=== PATIENT | male | born 1975 | race Caucasian/White ===

== ENCOUNTER → 2019-10-27 12:15 | Outpatient (CLI) | payer OTHER, SELFPAY ==
--- NOTE | 2019-10-27 | DI.RAD.S_ITS ---
PROCEDURE: XR HIP W PEL IF DONE RT 2V INDICATIONS: Pain in right hip TECHNIQUE: AP pelvis with lateral view(s) of the right hip(s). COMPARISON: None. FINDINGS: Bones: No fractures or dislocations. Pelvic ring appears intact. No suspicious bony lesions. There is moderate to severe superior joint space narrowing seen of the right hip, with associated remodeling changes with subchondral sclerosis and osteophyte formation. Moderate degenerative change is seen of the contralateral left hip. Soft tissues: The visualized bowel gas pattern is normal. No suspicious soft tissue calcifications. 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 Dictated by: Brian German M.D. on 10/27/2019 at 12:49 Approved by: Brian German M.D. on 10/27/2019 at 12:49
== END ==
PROVIDERS: Referring Provider Chiropractor; Visit Provider Chiropractor
DX: M25.551 Pain in right hip (principal); M25.751 Osteophyte, right hip
CPT/HCPCS: 73502